=== PATIENT | female | born 1960 | race Hispanic/Latino ===

== ENCOUNTER 2018-04-29 07:22 | Emergency (ER) | payer MEDICARE, BC ==
[2018-04-29 08:00] VITALS: BP 143/76
[2018-04-29] MEDS ORDERED: TDAP Vaccine 0.5 mL Syr IM ONE (08:12)
--- NOTE | 2018-04-29 08:16 | ED PDOC ---
Arrival/HPI - General Historian: Patient - History of Present Illness Time/Duration: 1 hour <Alfa Solomon - Last Filed: 04/29/18 09:32> - History of Present Illness Symptom Onset: Sudden Context: Home <Jose Childs - Last Filed: 04/29/18 13:34> - General Chief Complaint: Bite Time Seen by Provider: 04/29/18 08:05 - History of Present Illness Narrative History of Present Illness (Text): 58 year old female with past medical history of MS presents with squirrel bite on left index finger. Patient states she went to the park to eat her breakfast and go on a walk. While there a squirrel was around her and the patient proceeded to give a piece fo her bagel to the squirrel when the squirrel proceeded to bite her finger. She stated the pain was a 1/10 and minimal bleeding. She denies any chest pain, SOB, fever, chills, abd pain or any other complaints at this time. 04/29/18 08:13 (Alfa Solomon) Past Medical History - Provider Review Nursing Documentation Reviewed: Yes - Infectious Disease Hx of Infectious Diseases: None - Cardiac Hx Mitral Valve Prolapse: Yes - Pulmonary Hx Asthma: Yes - Neurological Hx Migraine: Yes Hx Multiple Sclerosis: Yes - Psychiatric Hx Substance Use: No <Alfa Solomon - Last Filed: 04/29/18 09:32> - Travel History Have you recently traveled outside [place] w/in the past 3 mons?: No - Past History Past History: No Previous - Tetanus Immunization Tetanus Immunization: Unknown <Jose Childs - Last Filed: 04/29/18 13:34> Family/Social History - Physician Review Nursing Documentation Reviewed: Yes Family/Social History: No Known Family HX Smoking Status: Never Smoked Hx Alcohol Use: No Hx Substance Use: No <Alfa Solomon - Last Filed: 04/29/18 09:32> Allergies/Home Meds <Alfa Solomon - Last Filed: 04/29/18 09:32> <Jose Childs - Last Filed: 04/29/18 13:34> Allergies/Adverse Reactions: Allergies No Known Allergies Allergy (Verified 04/29/18 08:01) Review of Systems - Review of Systems Constitutional: Normal Eyes: Normal ENT: Normal Respiratory: Normal Cardiovascular: Normal Gastrointestinal: Normal Musculoskeletal: Normal Skin: Other (small bite on left index finger) Neurological: Normal Endocrine: Normal Hemo/Lymphatic: Normal <Alfa Solomon - Last Filed: 04/29/18 09:32> Physical Exam Temperature: Afebrile Blood Pressure: Normal Pulse: Regular Respiratory Rate: Normal Appearance: Positive for: Well-Appearing, Non-Toxic Pain Distress: None Mental Status: Positive for: Alert and Oriented X 3 - Systems Exam Head: Present: Atraumatic, Normocephalic Pupils: Present: PERRL Conjunctiva: Present: Normal Ears: Present: Normal Mouth: Present: Moist Mucous Membranes Neck: Present: Normal Range of Motion Respiratory/Chest: Present: Clear to Auscultation, Good Air Exchange Cardiovascular: Present: Regular Rate and Rhythm, Murmurs, Normal S1, S2 Abdomen: Present: Normal Bowel Sounds. No: Tenderness, Distention Upper Extremity: Present: Other (bite on left tindex finger). No: Cyanosis, Edema Lower Extremity: No: Edema Neurological: Present: GCS=15, CN II-XII Intact Skin: Present: Warm, Other (bite [place] on left tip index) Psychiatric: Present: Oriented x 3 <Alfa Solomon - Last Filed: 04/29/18 09:32> Vital Signs Temp Pulse Resp BP Pulse Ox 04/29/18 09:35 98.0 F 89 18 98 04/29/18 07:57 97.6 F 88 17 143/76 100 Medical Decision Making <Alfa Solomon - Last Filed: 04/29/18 09:32> Re-evaluation Time: 09:10 Reassessment Condition: Improved <Jose Childs - Last Filed: 04/29/18 13:34> ED Course and Treatment: Plan -tetanus shot -abx -wash and clean wound -reasses 04/29/18 08:17 (Alfa Solomon) A 58 year old female presents for evaluation concerning a squirrel bite to left index finger. In agreement with resident note, which includes further HPI details. Patient was seen and evaluated with resident, came up with plan and treatment together. I performed the hx and physical exam of the patient and discussed their mgt with the RESIDENT. I reviewed the RESIDENT's NOTE and agree with the assessment and plan of care. left finger abrasion is noted, NON-bleeding, no discharge/pustules/indurations/ fluctuance noted pt is made aware of her medical results pt is encouraged NOT TO FEED animals pt is encouraged wound care pt will f/u as directed pt will be discharged home (Jose Childs) - Medication Orders Current Medication Orders: Discontinued Medications Amoxicillin/Clavulanate Potassium (Augmentin 875 Mg-125 Mg Tab) 1 tab PO STAT STA PRN Reason: Protocol Stop: 04/29/18 08:47 Last Admin: 04/29/18 09:34 Dose: 1 tab Tetanus/Reduced Diphtheria/Acell Pertussis (Boostrix Vaccine Inj) 0.5 ml IM .ONCE ONE Stop: 04/29/18 08:13 Last Admin: 04/29/18 08:35 Dose: 0.5 ml Immunization Registry Document 04/29/18 08:35 [email or web address] (Rec: 04/29/18 08:35 [email or web address] [id number]) Immunization Registry Consent Date 01/13/18 - PA / OPERATION SPECIALIST / Resident Statement / has reviewed & agrees with the documentation as recorded. / has examined the patient and agrees with the treatment plan. <Jose Childs - Last Filed: 04/29/18 13:34> Disposition/Present on Arrival - Present on Arrival Any Indicators Present on Arrival: No History of DVT/PE: No History of Uncontrolled Diabetes: No Urinary Catheter: No History of Decub. Ulcer: No History Surgical Site Infection Following: None - Disposition Have Diagnosis and Disposition been Completed?: Yes Disposition Time: 09:15 <Alfa Solomon - Last Filed: 04/29/18 09:32> - Disposition Patient Plan: Discharge <Jose Childs - Last Filed: 04/29/18 13:34> - Disposition Diagnosis: Wound due to squirrel bite, Animal bite of index finger, Finger abrasion Disposition: HOME/ ROUTINE Condition: GOOD Discharge Instructions (ExitCare): Skin Abrasions Print Language: JAPANESE Additional Instructions: Please keep index finger clean. Take antibiotics twice a day for 5 days. Please return to the ED if wound is infected. Prescriptions: Amoxicillin/Clavulanate [Augmentin 875 MG-125 MG] 1 tab PO Q12 #10 tab Referrals: PCP,NO [Non-Staff] - Follow up with primary Forms: GL 2ours (Chinese)
[2018-04-29] MEDS ORDERED: Amoxicillin-Clav 875-125 mg Tab PO STA (08:46)
[2018-04-29 09:36] VITALS: PULSE 89; RESP 18; TEMP 98; O2SAT 98
== END 2018-04-29 09:36 | disposition home or self-care (01) ==
LOC: ED 07:22
DX: S60.411A Abrasion of left index finger, initial encounter (principal); W53.21XA Bitten by squirrel, initial encounter; G35 Multiple sclerosis; Z23 Encounter for immunization

== ENCOUNTER 2019-04-05 11:29 | Outpatient (CLI) | payer MEDICARE, BC | END 2019-04-05 11:30 | disposition home or self-care (01) | LOC: RAD 11:29 | DX: G35 Multiple sclerosis (principal) ==

== ENCOUNTER 2019-04-07 10:36 | Outpatient (CLI) | payer MEDICARE, BC | END 2019-04-07 10:37 | disposition home or self-care (01) | LOC: RAD 10:36 ==